=== PATIENT | male | born 1980 ===

== ENCOUNTER 2017-02-12 14:48 | Emergency (ER) | payer OTHER ==
[2017-02-12 15:11] VITALS: TEMP 98.4
[2017-02-12] MEDS ORDERED: Sodium Chloride 0.9% 1,000 ML IV STA (15:56)
--- NOTE | 2017-02-12 16:48 | ED PDOC ---
HPI: Abdomen Time Seen by Provider: 02/12/17 15:24 Chief Complaint (Nursing): GI Problem Chief Complaint (Provider): GI Problem History Per: Patient History/Exam Limitations: no limitations Onset/Duration Of Symptoms: Days Current Symptoms Are (Timing): Still Present Severity: Mild Location Of Pain/Discomfort: LUQ, LLQ Quality Of Discomfort: "Pain" Associated Symptoms: Nausea, Vomiting, Diarrhea Exacerbating Factors: None Additional Complaint(s): Patient is a 37 year old male who presents to ED for abdominal pain with nausea, vomiting and diarrhea for 2 days. Pain is described as achy, constant to LUQ with waxing and waning of pain, and worsening since onset. Patient notes over 10 episodes of vomiting, non bilious but occasional bloody streaks, over 10 episodes of non bloody diarrhea as well. Patient reports he is unable to tolerate PO, denies fever but report dysuria with no urinary frequency or back pain . Past Medical History Reviewed: Historical Data, Nursing Documentation, Vital Signs Vital Signs: Last Vital Signs Temp 98.4 F 02/12/17 15:08 Pulse 92 H 02/12/17 20:06 Resp 18 02/12/17 20:06 BP 106/89 02/12/17 20:06 Pulse Ox 100 02/12/17 20:06 - Medical History PMH: No Chronic Diseases - Surgical History Other surgeries: testicular cyst removed - Family History Family History: States: Hypertension (mother) - Living Arrangements Living Arrangements: With Family - Home Medications Home Medications: Ambulatory Orders Medication Instructions Recorded Dicyclomine [Bentyl] 20 mg PO BID PRN #30 tab 02/12/17 Ondansetron [Zofran] 4 mg PO Q8H PRN #30 tab 02/12/17 - Allergies Allergies/Adverse Reactions: Allergies Allergy/AdvReac Type Severity Reaction Status Date / Time No Known Allergies Allergy Verified 02/12/17 15:08 Review of Systems ROS Statement: Except As Marked, All Systems Reviewed And Found Negative Constitutional: Negative for: Fever, Chills Gastrointestinal: Positive for: Nausea, Vomiting, Abdominal Pain, Diarrhea Genitourinary Male: Positive for: Dysuria. Negative for: Frequency, Hematuria Musculoskeletal: Negative for: Back Pain Skin: Negative for: Rash Neurological: Negative for: Weakness, Numbness Physical Exam - Reviewed Nursing Documentation Reviewed: Yes Vital Signs Reviewed: Yes - Physical Exam Appears: Positive for: Non-toxic (but tired appearing ), Uncomfortable (mild painful distress ) Skin: Positive for: Normal Color, Warm Eye Exam: Positive for: Normal appearance ENT: Negative for: Normal ENT Inspection (DMM), Pharyngeal Erythema, Tonsillar Exudate Neck: Positive for: Normal, Painless ROM Cardiovascular/Chest: Positive for: Regular Rate, Rhythm. Negative for: Murmur Respiratory: Positive for: Normal Breath Sounds. Negative for: Respiratory Distress Gastrointestinal/Abdominal: Positive for: Bowel Sounds (active), Tenderness ( LLU and LLQ ), Other (Negative ,murphys and Mcburneys ). Negative for: Mass, Distended, Guarding, Rebound Back: Positive for: Normal Inspection. Negative for: L CVA Tenderness, R CVA Tenderness Extremity: Positive for: Normal ROM Neurologic/Psych: Positive for: Alert, Oriented - Laboratory Results Result Diagrams: 02/12/17 16:45 02/12/17 16:45 - ECG O2 Sat by Pulse Oximetry: 99 (RA) Pulse Ox Interpretation: Normal Medical Decision Making Medical Decision Making: Time: 1550 Initial impression: Gastroenteritis, obstruction, colitis, diverticulitis, dehydration, sepsis and electrolyte abnormality Initial plan: -- CT-abdomen -- CMP -- UDS -- Lact acid -- Magnesium -- Phosphorous -- Urine dip -- CBC -- PT/PTT -- NSF, Protonix and Zofran -- Blood culture Labs unremarkable. CT with no clinically significant findings. 1900 Pt feeling better. Tolerated 1/2 sandwich in ER and fluids. DW pt findings and plan of care. Scribe Attestation: Documented by Malini Liang acting as a scribe for Cleopatra Schofield MD MD Scribe Attestation: All medical record entries made by the Scribe were at my direction and personally dictated by me. I have reviewed the chart and agree that the record accurately reflects my personal performance of the history, physical exam, medical decision making, and the department course for this patient. I have also personally directed, reviewed, and agree with the discharge instructions and disposition. Disposition - Clinical Impression Clinical Impression: Abdominal pain, Vomiting and diarrhea - Disposition Referrals: [facility] [Outside] [facility] [Outside] Disposition: Routine/Home Disposition Time: 19:00 Condition: STABLE Prescriptions: Dicyclomine [Bentyl] 20 mg PO BID PRN #30 tab PRN Reason: abdominal pain Ondansetron [Zofran] 4 mg PO Q8H PRN #30 tab PRN Reason: Nausea/Vomiting Instructions: Gastroenteritis (ED), Acute Abdominal Pain (ED) Forms: [facility] ED School/Work Excuse Print Language: CUBAN
[2017-02-12 17:04] LABS: BASO % 0.2 % (0.0-2.0); EOS % 0.4 % (0.0-4.0); HEMATOCRIT 47.2 % (35.0-51.0); LYMPH # 0.8 K/uL (1.0-4.3); LYMPH % 11.7 % (20.0-40.0); MEAN CORPUSCULAR HEMOGLOBIN 28.4 pg (27.0-31.0); MEAN PLATELET VOLUME 8.3 fl (7.2-11.7); MONO # 0.6 K/uL (0.0-0.8); MONO % 9.5 % (0.0-10.0); NEUT # 5.3 K/uL (1.8-7.0); NEUT % 78.2 % (50.0-75.0); NRBC % 0.1 % (0.0-0.0); RED CELL DISTRIBUTION WIDTH 13.6 % (11.5-14.5); WHITE BLOOD COUNT 6.8 K/uL (4.8-10.8)
[2017-02-12 17:25] LABS: ALB/GLOB RATIO 1.1 (1.0-2.1); ALKALINE PHOSPHATASE 81 U/L (38-126); ALT/SGPT 43 U/L (21-72); AST/SGOT 46 U/L (17-59); BILIRUBIN,TOTAL 0.6 mg/dl (0.2-1.3); BLOOD UREA NITROGEN 26 mg/dl (9-20); CALCIUM 8.9 mg/dL (8.4-10.2); CARBON DIOXIDE 24 mmol/L (22-30); CHLORIDE 98 mmol/L (98-107); GFR AFRICAN-AMERICAN > 60; GLUCOSE,RANDOM 104 mg/dL (75-110); LIPASE 42 U/L (23-300); MAGNESIUM 2.5 MG/DL (1.6-2.3); PHOSPHOROUS 3.4 mg/dl (2.5-4.5); POTASSIUM 3.7 MMOL/L (3.6-5.0); SODIUM 132 mmol/l (132-148); TOTAL PROTEIN 8.4 G/DL (6.3-8.2)
[2017-02-12 17:44] LABS: PARTIAL THROMBOPLASTIN TIME 28.5 SECONDS (23.3-32.5)
[2017-02-12] MEDS ORDERED: Iohexol 300 100 ML IJ ONE (17:46)
[2017-02-12] MEDS ORDERED: Sodium Chloride 0.9% 50 ML IV ONE (17:47)
--- NOTE | 2017-02-12 18:59 | CT ---
PROCEDURE: CT Abdomen and Pelvis with contrast HISTORY: Abdominal pain COMPARISON: None. TECHNIQUE: Helical CT scan of the abdomen and pelvis was performed after intravenous administration of contrast. Oral contrast was not administered. Coronal and sagittal reformatted images were obtained. Contrast dose: 95 cc Omnipaque 300 Radiation dose: Total exam DLP = 518.852 mGy-cm. FINDINGS: LOWER THORAX: The visualized lungs are clear. LIVER: The liver is normal in size. There is homogeneous enhancement without focal lesion. There is no intra hepatic biliary ductal dilatation. GALLBLADDER AND BILE DUCTS: There are no calcified gallstones, wall thickening or pericholecystic fluid. PANCREAS: The pancreas is normal in size. There is homogeneous enhancement without ductal dilatation or focal lesion. SPLEEN: The spleen is normal in size. There is homogeneous enhancement without focal lesion. ADRENALS: Both adrenal glands are normal in size. There is no discrete nodule. KIDNEYS AND URETERS: Both kidneys are normal in size. There is homogeneous enhancement without focal lesion. VASCULATURE: Normal. No aortic aneurysm. BOWEL: The small bowel loops are normal in caliber. The ascending and transverse colon are fluid-filled. There is apparent mild diffuse mural thickening and mucosal enhancement in the descending colon without significant pericolonic inflammatory changes. APPENDIX: Normal appendix. PERITONEUM: No free fluid. No free air. LYMPH NODES: There are prominent subcentimeter mesenteric lymph nodes. BLADDER: Normal in appearance. REPRODUCTIVE: Unremarkable. BONES: No acute fracture. Within normal limits for the patient's age. OTHER FINDINGS: None. IMPRESSION: 1. Apparent diffuse mural thickening and mucosal enhancement in the descending colon is nonspecific and could be related to underdistention however mild nonspecific infectious/inflammatory colitis is also a consideration. Please note evaluation of the bowel is limited in the absence of oral contrast. Clinical correlation and follow-up is advised. 2. Prominent mesenteric lymph nodes are likely reactive in etiology.
[2017-02-12] MEDS ORDERED: DiphenhydrAMINE 50 mg/ml Inj IVP STA (19:19)
[2017-02-12] MEDS ORDERED: DiphenhydrAMINE 50 mg/ml Inj ONE (19:45)
[2017-02-12 20:06] VITALS: BP 106/89; PULSE 92; RESP 18
[2017-02-13 14:17] VITALS: O2SAT 99
== END 2017-02-12 21:15 | disposition home or self-care (01) ==
LOC: H.ER 14:48
DX: K52.9 Noninfective gastroenteritis and colitis, unspecified (principal); R11.2 Nausea with vomiting, unspecified; R19.7 Diarrhea, unspecified; E86.0 Dehydration